=== PATIENT | male | born 1985 | race Caucasian/White ===

== ENCOUNTER 2022-07-18 19:49 | Emergency (ER) | payer OTHER ==
[~2022-07-18] VITALS: Ht 175.3 cm; Wt 97.5 kg
[2022-07-18 19:50] VITALS: BP 114/77
--- NOTE | 2022-07-18 19:50 | NUR ---
BIBA TO BED #2
--- NOTE | 2022-07-18 19:52 | NUR ---
Patient BIB by BLS from Rehab facility. C/O Seizure x today. Per reported, patient seen by witness , one episode clonic tonic seizure, when BLS arrived , patient stopped, A/O,X1, no medication given, vss. Patient arrived in ER, A/O,X4, denies pain, place patient on molecular geneticist , pulse ox and seizure pads. PMHx: Seizure (2005), GERD, Cirrhosis
--- NOTE | 2022-07-18 19:55 | NUR ---
Dr. Mays examining patient.
[2022-07-18] MEDS ORDERED: levETIRAcetam 500 MG TAB PO ONE (20:25)
[2022-07-18 21:48] VITALS: BP 121/82
--- NOTE | 2022-07-18 21:48 | NUR ---
Patient discharged with v/s stable. Written and verbal after care instructions given and explained. Patient verbalized understanding. Ambulatory with steady gait. All questions addressed prior to discharge. Advised to follow up with PMD.
== END 2022-07-18 21:48 | disposition home or self-care (01) ==
LOC: MED 19:49
DX: R56.9 Unspecified convulsions (principal); R41.0 Disorientation, unspecified; R11.10 Vomiting, unspecified; K21.9 Gastro-esophageal reflux disease without esophagitis; F12.90 Cannabis use, unspecified, uncomplicated; R17 Unspecified jaundice
CPT/HCPCS: 99285